=== PATIENT | male | born 1960 | race Caucasian/White ===

== ENCOUNTER 2023-04-04 17:41 | Emergency (ER) | payer BC, OTHER ==
[~2023-04-04] VITALS: Ht 182.9 cm; Wt 108.9 kg
[2023-04-04 17:53] VITALS: BP 139/83
[2023-04-10] MEDS ORDERED: OMEP20ER PO (13:08)
== END 2023-04-04 19:52 | disposition home or self-care (01) ==
LOC: ER 17:41
DX: T18.128A Food in esophagus causing other injury, initial encounter (principal)
CPT/HCPCS: 71046; 99283-25

== ENCOUNTER 2023-04-06 00:13 | Emergency (ER) | payer BC, OTHER ==
[~2023-04-06] VITALS: Ht 182.9 cm; Wt 106.6 kg
[2023-04-06 00:19] VITALS: BP 153/82
== END 2023-04-06 00:34 | disposition home or self-care (01) ==
LOC: ER 00:13
DX: K21.00 Gastro-esophageal reflux disease with esophagitis, without bleeding (principal); R06.02 Shortness of breath; R05.9 Cough, unspecified
CPT/HCPCS: 99283